=== PATIENT | male | born 1990 | race Caucasian/White ===

== ENCOUNTER 2016-10-15 09:40 | Emergency (ER) | payer BC ==
[~2016-10-15] VITALS: Ht 190.5 cm; Wt 106.1 kg
[~2016-10-15 09:40] MED LIST: ALBU8.5H6 IH; EPIN0.3P2 IM; METH4TAB27 PO; PRED-501 PO; PRED20TA PO; SULF-221 PO
--- OUTSIDE RECORDS SUMMARY | 2016-10-15 09:46 | XMS REPORT | Continuity of Care Document ---
Author Author [facility] Address Unknown Phone Unavailable Care Team Providers Care Journeyman Operator Assistant Name Role Phone Ander Man PCP [phone] Insurance Providers Payer Name Policy Number Subscriber Name Relationship [facility] [id number] Leo Lyons Self / Same As Patient Advance Directives Directive Response Recorded Date/Time Advanced Directives Unknown 07/19/16 4:11am Chief Complaint and Reason for Visit Chief Complaint Allergic Reaction Reason for Visit Allergic urticaria Problems Active Problems Medical Problem Onset Date Status Allergic reaction 07/10/2016 Acute Allergic urticaria Unknown Acute Mental disorder Unknown Acute Spider bite Unknown Acute Medications Current Home Medications Medication Dose Units Route Directions Days/Qty Instructions Start Date Albuterol Sulfate 8 Gm 8 Gm RESPIRATORY (INHALATION) As Needed 05/07 Epinephrine 0.3 Mg/0.3 Ml 0.3 Mg INTAMUSCULAR As Directed 1 05/07/16 Epinephrine 0.3 Mg/0.3 Ml 0.3 Mg INTAMUSCULAR As Needed 1 05/20/16 Prednisone 20 Mg 20 Mg ORAL As Directed 18 1 po tidx3d then 1 po bidx3d then 1 po qblolo0w 07/19/16 Epinephrine 0.3 Mg/0.3 Ml 0.3 Mg INTAMUSCULAR As Directed 1 07/19/16 Past Home Medications Medication Directions Ordered Status Sulfamethoxazole/Trimethoprim (Bactrim Ds 800MG/160MG) 1 Each Tablet, 1 Each Oral Twice A Day 02/20/16 Discontinued Prednisone 20 Mg Tablet, 20 Mg Oral Three Times A Day 05/07/16 Discontinued Methylprednisolone 21 Tab/Pkt Tablet, 21 Tab Oral As Directed 07/10/16 Discontinued Social History Query Response Start Date Stop Date Smoking Status Unknown, if ever smoked Hospital Discharge Instructions No hospital discharge instructions. Plan of Care Discharge Date 07/19/16 6:46am Disposition 01 HOME OR SELF-CARE Condition at Discharge Stable Instructions/Education Provided Urticaria (ED) Prescriptions See Medication Section Referrals Ander Man - Additional Instructions/Education ED TAYLOR if any worse. Stop fabric softener. Body soap: Dove free. Shampoo: Plain Head & Shoulders. Record a food log of everything you ate in the last 24 hours. Take Benadryl 50mg (2 capsules) 4 times daily until back to normal. Take Pepcid 20mg twice daily until back to normal. Prednisone as directed. Epipen as directed. Follow up with your doctor. Some of your test results may not be complete prior to your leaving the Emergency Department. The Emergency Department is not authorized to give test results over the phone. Please contact the doctor's office listed in this packet of information for your final results. Follow up with your primary care physician or return to the Emergency Department for worsening or worrisome symptoms. * Emergency Department phone number: [phone], x [phone] MEDICAL RECORD If you need copies of your X-rays, call [phone]. If you need copies of your medical record, including lab results, a signed authorization for release of records will be required. A telephone call for release of Health Information is not allowed. BILLING Billing can sometimes be confusing and frustrating. To help avoid confusion in the future, please take a moment to acquaint yourself with the billing parties for services. SERVICE BILLING [facility] Physician Services [facility] X-[facility] Patients will receive bills for services from the appropriate provider. If you have any questions about your [facility] bill, our staff will be happy to assist you. Please call [phone], and ask for the billing department. THANK YOU for choosing [facility] as your emergency care provider! Care Plan and Goals ~~Discharge Care Plan~~ Problem: Rash/hives Goal: Decreased redness, itching, and blotches. Instructions: Take medication(s) as directed. Keep a log of medication times and dosages to avoid over or under dosage. Avoid triggers that cause your rash or hives. Functional Status No functional status results. Allergies, Adverse Reactions, Alerts No known allergies. Immunizations Name Given Type Status Date Influenza Vaccine Received if Current 06/29/15 Historical Historical Vital Signs Acute Vital Signs Vital Response Date/Time Temperature (Fahrenheit) 97.2 07/19/2016 6:44am Pulse 66 bpm 07/19/2016 6:44am Respirations 18 07/19/2016 6:44am Height 6 ft 3 in Weight 223 lb Body Mass Index 27.0 kg/m^2 Results No known relevant diagnostic tests, laboratory data and/or discharge summary. Procedures Procedure Status Date Provider(s) HYDRATE IV INFUSION ADD-ON Completed 07/10/16 THER/PROPH/DIAG IV INF INIT Completed 07/10/16 TX/PRO/DX INJ NEW DRUG ADDON Completed 07/10/16 EMERGENCY DEPT VISIT Completed 07/10/16 Completed 07/10/16 Completed 07/10/16 Completed 07/10/16 Completed 07/10/16 Completed 07/10/16 Encounters Encounter Location Arrival/Admit Date Discharge/Depart Date Attending Provider Departed Emergency Room [facility] 07/19/16 4:05am 07/19/16 6:46am ALEJANDRA HOUSTON MD Departed Emergency Room [facility] 07/10/16 8:30am 07/10/16 10:52am ALEJANDRA HOUSTON MD Recent Diagnosis
[2016-10-15] MEDS ORDERED: FAMOTIDINE IV 20 MG in SODIUM CHLORIDE VIAL (PF) 10 ML IV ONE (09:55)
[2016-10-15] MEDS ORDERED: diphenhydrAMINE 50 MG/ML INJ (BENADRYL) IV ONE (09:55)
[2016-10-15] MEDS ORDERED: methylPREDNISolone 125 MG (Solu-MEDROL) VIAL IV ONE (09:55)
[2016-10-15 11:32] VITALS: BP 147/83
[2016-10-18] MEDS ORDERED: AZIT250T81 PO (12:40)
== END 2016-10-15 11:31 | disposition home or self-care (01) ==
LOC: EDUNIT# 09:40 → ED 09:42
DX: T39.1X5A Adverse effect of 4-Aminophenol derivatives, initial encounter (principal); L27.0 Generalized skin eruption due to drugs and medicaments taken internally
CPT/HCPCS: 96361; 96374; 96375; 99283; J1200; J2930; J3490; J7030; J7050; 99282

== ENCOUNTER → 2016-10-18 | Outpatient (CLI) | payer BC ==
[2016-10-18 12:52] VITALS: BP 124/81
== END ==
LOC: MHUC 12:27
PROVIDERS: ATTEND Physician Assistant
DX: J40 Bronchitis, not specified as acute or chronic (principal)
CPT/HCPCS: 99213

== ENCOUNTER 2017-01-08 01:28 | Emergency (ER) | payer BC ==
[~2017-01-08] VITALS: Ht 190.5 cm; Wt 109.0 kg
[~2017-01-08 01:28] MED LIST changes: +AZIT250T81 PO
[2017-01-08] MEDS ORDERED: methylPREDNISolone 125 MG (Solu-MEDROL) VIAL IV ONE (02:00)
[2017-01-08] MEDS ORDERED: EPINEPHrine 0.1 MG/ML (1:10,000) 10 ML SYRINGE IV ONE (02:00)
[2017-01-08] MEDS ORDERED: diphenhydrAMINE 50 MG/ML INJ (BENADRYL) IV ONE (02:00)
[2017-01-08] MEDS ORDERED: FAMOTIDINE IV 20 MG in SODIUM CHLORIDE VIAL (PF) 10 ML IV ONE (02:00)
[2017-01-08] MEDS ORDERED: EPINEPHrine 1MG/ML (1:1000) 1 ML AMPUL (ADRENALIN) IM ONE (02:05)
--- NOTE | 2017-01-08 02:54 | NUR ---
Pt states he is feeling better, less itching
[2017-01-08 03:55] VITALS: BP 144/82
== END 2017-01-08 03:45 | disposition home or self-care (01) ==
LOC: EDUNIT# 01:28 → ED 01:29
DX: T78.40XA Allergy, unspecified, initial encounter (principal); L50.0 Allergic urticaria
CPT/HCPCS: 96361; 96372; 96374; 96375; 99283; J0171; J1200; J2930; J3490; J7030; J7050; 99282